=== PATIENT | male | born 1955 | race Caucasian/White ===

== ENCOUNTER 2016-06-05 08:15 | Outpatient (RCR) | payer BC, OTHER ==
[~2016-06-05 08:15] MED LIST: ALEVE 220MG220 MG PO; CLARITIN 1010 MG/TAB PO; COLCRYS0.6 MG PO; GLUCOSAMINE500 M2 PO; HCTZ 25MG TAB25 MG PO; HYZAAR 12.5 MG-1 TAB PO; INDOCIN 25MG CA25 MG PO; LIPITOR 10MG10 MG PO; MULTIPLE VITAMI1 CAP PO; NORVASC 5MG5 MG/TAB PO; ZYLOPRIM 300MG300 MG PO
== END 2016-07-02 12:19 | disposition home or self-care (01) ==
LOC: WSPT 08:15
DX: M25.511 Pain in right shoulder (principal)

== ENCOUNTER 2019-08-11 15:00 | Outpatient (RCR) | payer BC, OTHER | END 2019-08-13 14:00 | disposition home or self-care (01) | LOC: WSC 15:00 | DX: M25.511 Pain in right shoulder (principal); M25.521 Pain in right elbow ==